=== PATIENT | female | born 1970 | race African-American/Black ===

== ENCOUNTER 2017-09-11 09:52 | Emergency (ER) | payer MEDICARE, MEDICAID ==
[2017-09-11] MEDS ORDERED: KETOROLAC TROMETHAMINE INJ/PF 30 MG/1 ML SDV IM ONE (10:21)
--- NOTE | 2017-09-11 10:28 | ER Document Report ---
ED General - General Chief Complaint: Arm Injury Stated Complaint: FALL ARM PAIN Time Seen by Provider: 09/11/17 10:11 Mode of Arrival: Ambulatory Information source: Patient Notes: The 47-year-old female presents to ED for complaint of pain to her left shoulder elbow forearm and hip and right shoulder after she fell down several steps last night. The [id number] states she was helping her when the patient slipped banging the rail and pollen sliding down at least 4 stairs. She is at a wheelchair this time. She is morbidly obese at 138 kg BMI of 55.8. TRAVEL OUTSIDE OF THE [place] IN LAST 30 DAYS: No - HPI Onset: This morning Onset/Duration: Sudden Quality of pain: Achy, Sharp Severity: Severe Pain Level: 5 Associated symptoms: Body/muscle aches, Other - Pain to left hip left arm left shoulder left elbow right shoulder Exacerbated by: Movement, Walking Relieved by: Denies Similar symptoms previously: Yes Recently seen / treated by doctor: No - Related Data Allergies/Adverse Reactions: nitroglycerin Allergy (Verified 09/11/17 10:01) sulfamethoxazole [From Bactrim] Allergy (Verified 09/11/17 10:01) trimethoprim [From Bactrim] Allergy (Verified 09/11/17 10:01) vancomycin Allergy (Verified 09/11/17 10:01) Past Medical History - General Information source: Patient - Social History Smoking Status: Never Smoker Cigarette use (# per day): No Chew tobacco use (# tins/day): No Smoking Education Provided: No Frequency of alcohol use: None Drug Abuse: None Lives with: Family Family History: Reviewed & Not Pertinent Patient has suicidal ideation: No Patient has homicidal ideation: No - Past Medical History Cardiac Medical History: Reports: Hx Congestive Heart Failure, Hx Coronary Artery Disease, Hx Hypercholesterolemia, Hx Hypertension Pulmonary Medical History: Reports: Hx Asthma, Hx COPD, Other - Pulmonary fibrosis EENT Medical History: Reports: None Neurological Medical History: Reports: None Endocrine Medical History: Reports: Other - Lupus Renal/ Medical History: Reports: None Malignancy Medical History: Reports: None GI Medical History: Reports: None Musculoskeltal Medical History: Reports Hx Arthritis, Reports Hx Musculoskeletal Deformity, Reports Hx Musculoskeletal Trauma Skin Medical History: Reports None Traumatic Medical History: Reports: None Infectious Medical History: Reports: None Past Surgical History: Reports: Hx Adenoidectomy, Hx Cardiac Catheterization, Hx Cholecystectomy, Hx Coronary Stent - 4, Hx Hysterectomy, Hx Orthopedic Surgery, Hx Tonsillectomy - Immunizations Immunizations up to date: Yes Hx Diphtheria, Pertussis, Tetanus Vaccination: Yes Review of Systems - Review of Systems Constitutional: No symptoms reported EENT: No symptoms reported Cardiovascular: No symptoms reported Respiratory: No symptoms reported Gastrointestinal: No symptoms reported Genitourinary: No symptoms reported Female Genitourinary: No symptoms reported Musculoskeletal: No symptoms reported Skin: No symptoms reported Hematologic/Lymphatic: No symptoms reported Neurological/Psychological: No symptoms reported -: Yes All other systems reviewed and negative Physical Exam - Vital signs Vitals: Temp Pulse Resp BP Pulse Ox 98.7 F 86 24 H 106/88 H 100 09/11/17 10:06 09/11/17 10:06 09/11/17 10:06 09/11/17 10:06 09/11/17 10:06 Interpretation: Normal - General General appearance: Appears well, Alert - HEENT Head: Normocephalic, Atraumatic Eyes: Normal Pupils: PERRL - Respiratory Respiratory status: No respiratory distress Chest status: Nontender Breath sounds: Normal Chest palpation: Normal - Cardiovascular Rhythm: Regular Heart sounds: Normal auscultation Murmur: No - Abdominal Inspection: Normal Distension: No distension Bowel sounds: Normal Tenderness: Nontender Organomegaly: No organomegaly - Back Back: Normal, Tender, Scars. No: Deformity/step-off, Vertebra tenderness, Scoliosis, Wounds - Extremities General upper extremity: Normal inspection, Nontender, Normal color, Normal ROM , Normal temperature General lower extremity: Normal inspection, Nontender, Normal color, Normal ROM , Normal temperature, Normal weight bearing. No: Laura's sign - Neurological Neuro grossly intact: Yes Cognition: Normal Orientation: AAOx4 [place] Coma Scale Eye Opening: Spontaneous Monster Coma Scale Verbal: Oriented [place] Coma Scale Motor: Obeys Commands [place] Coma Scale Total: 15 Speech: Normal Motor strength normal: LUE, RUE, LLE, RLE Sensory: Normal - Psychological Associated symptoms: Normal affect, Normal mood - Skin Skin Temperature: Warm Skin Moisture: Dry Skin Color: Normal Course - Re-evaluation Re-evalutation: 09/11/17 21:17 X-rays discussed with patient. Written reports of x-rays given the patient to follow-up with her primary doctor. Patient instructed to follow-up with orthopedics. Dr. Pham was consulted and he stated that the patient needed to follow-up in the office this was not an acute problem and did not need to be seen today. After performing a Medical Screening Examination, I estimate there is LOW risk for INTRACRANIAL HEMORRHAGE, UNSTABLE SPINE FRACTURE, CENTRAL CORD SYNDROME, CAUDA EQUINA, THORACIC AORTIC DISSECTION, PNEUMOTHORAX, PERFORATED BOWEL, RUPTURED ABDOMINAL AORTIC ANEURYSM, ACUTE TENDON RUPTURE, COMPARTMENT SYNDROME, or OPEN FRACTURE, thus I consider the discharge disposition reasonable. Also, there is no evidence or peritonitis, sepsis, or toxicity. I have reevaluated this patient multiple times and no significant life threatening changes are noted. The patient and I have discussed the diagnosis and risks, and we agree with discharging home to follow-up with their primary doctor with the understanding that symptoms and presentations can change. We also discussed returning to the Emergency Department immediately if new or worsening symptoms occur. We have discussed the symptoms which are most concerning (e.g., bloody stool, fever, changing or worsening pain, vomiting) that necessitate immediate return. - Vital Signs Vital signs: Temp Pulse Resp BP Pulse Ox 98.4 F 69 20 120/81 100 09/11/17 13:00 09/11/17 13:00 09/11/17 13:00 09/11/17 13:00 09/11/17 13:00 - Diagnostic Test Radiology reviewed: Image reviewed, Reports reviewed Discharge - Discharge Clinical Impression: Fall (on) (from) other stairs and steps, initial encounter, Contusion of right upper arm, initial encounter, Bilateral avascular necrosis humeral head Contusion of left hip Qualifiers: Encounter type: initial encounter Qualified Code(s): S70.02XA - Contusion of left hip, initial encounter Contusion of right shoulder Qualifiers: Encounter type: initial encounter Qualified Code(s): S40.011A - Contusion of right shoulder, initial encounter Contusion of right forearm Qualifiers: Encounter type: initial encounter Qualified Code(s): S50.11XA - Contusion of right forearm, initial encounter Condition: Stable Disposition: HOME, SELF-CARE Additional Instructions: Osteonecrosis, also known as aseptic necrosis, avascular necrosis (AVN), atraumatic necrosis, and ischemic necrosis, is a pathologic process that has been associated with numerous conditions and therapeutic interventions. In patients in whom there is direct damage to bone vasculature (eg, femoral neck fracture) or direct injury of bone or marrow elements (eg, radiation injury, dysbarism, or caisson disease), the cause is clearly identifiable. However, in many patients, the mechanisms by which this disorder develops are not fully understood. Compromise of the bone vasculature, leading to the of bone and marrow cells (bone marrow infarction), and ultimate mechanical failure appear to be common to most proposed etiologies. The process is most often progressive, resulting in joint destruction within a few months to two years in the majority of patients. A variety of traumatic and atraumatic factors contribute to the etiology of osteonecrosis . A definitive etiologic role has been established for some of these factors, based upon longitudinal cohort studies or meta-analyses, but not for the majority, which are considered associated risk factors . Use of glucocorticoids and excessive alcohol intake are associated with more than 80 percent of atraumatic cases . The pathogenesis of osteonecrosis is an area of controversy. Most experts believe that it is the result of the combined effects of genetic predisposition , metabolic factors, and local factors affecting blood supply, such as vascular damage, increased intraosseous pressure, and mechanical stresses . The early stages of the natural history are unclear, as these stages are largely asymptomatic and the patient does not present until later. It is generally agreed that there is an interruption of the blood circulation within the bone; subsequently, the adjacent area becomes hyperemic, resulting in demineralization , in trabecular thinning, and, later, in collapse. USE OF TYLENOL (ACETAMINOPHEN): Acetaminophen may be taken for pain relief or fever control. It's much safer than aspirin, offering a wider range of "safe" dosages. It is safe during . Some brand names are Tylenol, Panadol, Datril, Anacin 3, Tempra, and Liquiprin. Acetaminophen can be repeated every four hours. The following are maximum recommended dosages: WEIGHT Dose Drops Elixir Chewable( 80mg) (LBS.) drprs=droppers tsp=teaspoon 6 40 mg 0.4 ml (1/2) 6-11 80 mg 0.8 ml (full) tsp 1 tab 12-16 120 mg 1 1/2 drprs 3/4 tsp 1 1/2 tabs 17-23 160 mg 2 drprs 1 tsp 2 tabs 24-30 240 mg 3 drprs 1 1/2 tsp 3 tabs 30-35 320 mg 2 tsp 4 tabs 36-41 360 mg 2 1/4 tsp 4 1/2 tabs 42-47 400 mg 2 1/2 tsp 5 tabs 48-53 480 mg 3 tsp 6 tabs 54-59 520 mg 3 1/4 tsp 6 1/2 tabs 60-64 560 mg 3 1/2 tsp 7 tabs 65-70 600 mg 3 3/4 tsp 7 1/2 tabs 71-76 640 mg 4 tsp 8 tabs 77-82 720 mg 4 1/2 tsp 9 tabs 83-88 800 mg 5 tsp 10 tabs >89 pounds or adults 650 mg to 900 mg Acetaminophen can be repeated every four hours. Maximum dose not to exceed 4000 mg a day. These maximum recommended dosages are slightly higher than the dosages written on the product container, but these dosages are very safe and below the toxic dosage for acetaminophen. Anti-Inflammatory Medication You have received a prescription for an antiinflammatory agent. This is an excellent, safe drug for pain control. In addition, it has potent antiinflammatory effects which are beneficial, especially in the treatment of injuries, arthritis, or tendonitis. It's best to take this medicine with food. Persons with ulcer disease or allergy to aspirin should notify their physician of this before taking this drug. Take the medication exactly as prescribed. Don't take additional doses unless instructed to do so by your doctor. If you develop wheezing, shortness of breath, hives, faintness, stomach pain, vomiting, or dark black stools, return for re-evaluation at once. ICE PACKS: Apply ice packs frequently against the painful area. Many different schedules are recommended, such as "20 minutes on, 20 minutes off" or "one hour ice, two hours rest." If you need to work, you may need to go longer between ice treatments. You should plan to have the area ice packed AT LEAST one fourth of the time. The ice should be applied over the wrap, tape, or splint, or over a layer of cloth -- not directly against the skin. Some ice bags have a built-in cloth and can be put directly on the skin. WARM PACKS: After approximately two days, apply gentle heat (such as a heating pad or hot water bottle) for about 20 to 30 minutes about every two hours -- at least four times daily. Warmth and elevation will help you make a more rapid recovery , and will ease the pain considerably. Do not use HOT heat, and never apply heat for longer than 30 minutes. The continuous heat can invisibly damage skin and muscles -- even when no burn is seen on the surface. Damaged muscles can make you MORE sore. MUSCLE RELAXERS: Muscle relaxing medications are usually prescribed for acute muscle spasm or injury to the neck and back. They are often combined with antiinflammatory pain medication for increased relief. You may stop the muscle relaxer when the pain and stiffness have improved. Start the medication again if spasms recur. Muscle relaxers may cause drowsiness, especially with the first dose. Do not operate machinery or drive while under the effects of the medication. Most muscle relaxers last up to 24 hours. Do not combine the medication with alcohol. ORAL NARCOTIC MEDICATION: You have been given a prescription for pain control. This medication is a narcotic. It's best taken with food, as nausea can result if taken on an empty stomach. Don't operate machinery or drive within six hours of taking this medication. Do not combine this medicine with alcohol, or with any medication which can cause sedation (such as cold tablets or sleeping pills) unless you get permission from the physician. Narcotics tend to cause constipation. If possible, drink plenty of fluids and eat a diet high in fiber and fruits. FOLLOW-UP CARE: If you have been referred to a physician for follow-up care, call the physician s office for an appointment as you were instructed or within the next two days. If you experience worsening or a significant change in your symptoms, notify the physician immediately or return to the Emergency Department at any time for re-evaluation. Prescriptions: Hydrocodone/Acetaminophen [Eldora 5-325 mg Tablet] 1 tab PO Q6HP PRN #10 tablet PRN Reason: Cyclobenzaprine HCl [Flexeril 10 mg Tablet] 10 mg PO TIDP PRN #15 tab PRN Reason: Referrals: CATALINA REYES MD [ACTIVE STAFF] - Follow up as needed
--- NOTE | 2017-09-11 12:07 | RADIOLOGY REPORT (SQ) ---
EXAM DESCRIPTION: FOREARM LEFT COMPLETED DATE/TIME: 09/11/2017 11:49 am REASON FOR STUDY: fell down stairs COMPARISON: None. NUMBER OF VIEWS: Two views. TECHNIQUE: Two radiographic images acquired of the left forearm, including elbow and wrist in at [address] one projection. LIMITATIONS: None. FINDINGS: MINERALIZATION: Normal. BONES: No acute fracture. No worrisome bone lesions. SOFT TISSUES: No obvious swelling or foreign body. OTHER: No other significant finding. IMPRESSION: NEGATIVE STUDY OF THE LEFT FOREARM. NO RADIOGRAPHIC EVIDENCE OF ACUTE INJURY. TECHNICAL DOCUMENTATION: JOB ID: [id number] [employer]- All Rights Reserved Reading location - IP/workstation name: [email or web address]
--- NOTE | 2017-09-11 12:10 | RADIOLOGY REPORT (SQ) ---
EXAM DESCRIPTION: SHOULDER BILAT 2 OR MORE VIEWS COMPLETED DATE/TIME: 09/11/2017 11:49 am REASON FOR STUDY: fell down stairs COMPARISON: None. NUMBER OF VIEWS: Three views. TECHNIQUE: Internal rotation, external rotation, and Y view images acquired of the right and left sh oulder. LIMITATIONS: None. FINDINGS: RIGHT: MINERALIZATION: Normal. BONES: Avascular necrosis of the right humeral head is present with patchy subcortical sclerosis and mild articular surface depression and irregularity related to avascular necrosis. No definite acute posttraumatic fracture is present. Scapula, clavicle, right upper ribs are intact. JOINTS: No glenohumeral dislocation. No acromioclavicular joint widening VISUALIZED LUNGS AND RIBS: No pneumothorax. No rib fracture. SOFT TISSUES: No radiopaque foreign body. OTHER: No other significant finding. LEFT: MINERALIZATION: Normal. BONES: Avascular necrosis of the left humeral head is present with patchy subcortical sclerosis. No articular surface irregularity. No acute fracture. Left scapula, clavicle, left upper ribs are inta ct. JOINTS: No glenohumeral dislocation. No acromioclavicular joint widening. VISUALIZED LUNGS AND RIBS: No pneumothorax. No rib fracture. SOFT TISSUES: No radiopaque foreign body. Intra-articular loose bodies are present along the axillar y recess left shoulder joint OTHER: No other significant finding. IMPRESSION: Bilateral humeral head avascular necrosis. No acute fracture or malalignment. TECHNICAL DOCUMENTATION: JOB ID: [id number] [employer]- All Rights Reserved Reading location - IP/workstation name: [email or web address]
--- NOTE | 2017-09-11 12:11 | RADIOLOGY REPORT (SQ) ---
"EXAM DESCRIPTION: HIP LEFT AP/LATERAL COMPLETED DATE/TIME: 09/11/2017 11:49 am REASON FOR STUDY: fell down stairs COMPARISON: None. NUMBER OF VIEWS: Two views. TECHNIQUE: AP pelvis and additional frog-leg view of the left hip. LIMITATIONS: Large patient FINDINGS: MINERALIZATION: Normal. LEFT HIP: No fracture or dislocation. No worrisome bone lesions. Mild left hip joint space narrowin g and acetabular rim bony spurring. RIGHT HIP: No fracture or dislocation. No worrisome bone lesions. Mild right hip joint space narrow ing without significant acetabular rim bony spurring. PUBIS AND ISCHIUM: No fracture. PELVIS: No fracture. SACRUM: No fracture or dislocation. No worrisome bone lesions. SOFT TISSUES: No findings. OTHER: No other significant finding. IMPRESSION: No acute fracture TECHNICAL DOCUMENTATION: JOB ID: [id number] [employer] | [employer]- All Rights Reserved Reading location - IP/workstation name: [email or web address]"
[2017-09-11 13:31] VITALS: BP 120/81
== END 2017-09-11 13:00 | disposition home or self-care (01) ==
LOC: ER 09:52
DX: S40.011A Contusion of right shoulder, initial encounter (principal); S40.021A Contusion of right upper arm, initial encounter; S70.02XA Contusion of left hip, initial encounter; S50.11XA Contusion of right forearm, initial encounter; M87.9 Osteonecrosis, unspecified; M25.522 Pain in left elbow; M79.602 Pain in left arm; W10.9XXA Fall (on) (from) unspecified stairs and steps, initial encounter; I25.10 Atherosclerotic heart disease of native coronary artery without angina pectoris; I10 Essential (primary) hypertension; J44.9 Chronic obstructive pulmonary disease, unspecified; E66.01 Morbid (severe) obesity due to excess calories; Z68.43 Body mass index [BMI] 50.0-59.9, adult; Z88.8 Allergy status to other drugs, medicaments and biological substances; Z88.1 Allergy status to other antibiotic agents; Z88.5 Allergy status to narcotic agent
CPT/HCPCS: 99283; 96372; 73090; 73502; 73030; J1885

== ENCOUNTER → 2017-09-29 | Outpatient (CLI) | payer MEDICARE ==
--- NOTE | 2017-09-29 16:57 | RADIOLOGY REPORT (SQ) ---
EXAM DESCRIPTION: MRI RT UPPER JOINT WITHOUT COMPLETED DATE/TIME: 09/29/2017 10:56 am REASON FOR STUDY: RT HUMERUS avascular necrosis M87.022 IDIOPATHIC ASEPTIC NECROSIS OF LEFT HUMERUS M87.021 IDIOPATHIC ASEPTIC NECROSIS OF RIGHT HUMERUS COMPARISON: Plain radiograph TECHNIQUE: Right shoulder images acquired and stored on PACS. Multiplanar imaging to include fat sen sitive sequences such as T1, water sensitive sequences such as FST2/STIR, cartilage sensitive sequenc es such as FSPD/gradient-echo sequences. LIMITATIONS: Morbid obesity FINDINGS: BONE MARROW AND CORTEX: Generalize flattening of the humeral head with signal alteration i ndicating avascular necrosis. Some fragmentation of the superior cortex. JOINT OR BURSAL EFFUSION: Intra and extra articular fluid. There is a prominent subdeltoid effusion. GLENO-HUMERAL ARTICULATION: Mild degenerative changes with medial humeral osteophyte. ACROMION AND AC JOINT: Type 1 acromion. AC joint arthropathy. ROTATOR CUFF AND INTERVAL: Marked tendinopathy. No definitive tear, although sub optimal visualizati on. No rotator interval tear. No rotator interval thickening to suggest adhesive capsulitis. LABRUM AND BICEPS LABRAL COMPLEX: Intact. No labral tear. Intra-articular long-head biceps tendon n ormal. Distal biceps in normal location in bicipital groove. REMAINDER OF LABRUM AND IGHL : No gross tear or paralabral cyst formation. Labral evaluation is less than optimal without joint distention. No thickening of IGHL to suggest adhesive capsulitis. PERIARTICULAR AND ADJACENT SOFT TISSUES: No masses or abnormal nodes. OTHER: No other significant finding. IMPRESSION: Suboptimal study related to morbid obesity. Avascular necrosis of the humeral head with fragmentation. Tendinopathy of the supraspinatus but no definitive full-thickness tear. Intra and extra-articular fluid. TECHNICAL DOCUMENTATION: JOB ID: [id number] [employer]- All Rights Reserved Reading location - IP/workstation name: [email or web address]
--- NOTE | 2017-09-29 17:03 | RADIOLOGY REPORT (SQ) ---
EXAM DESCRIPTION: MRI LT UPPER JOINT WITHOUT COMPLETED DATE/TIME: 09/29/2017 10:56 am REASON FOR STUDY: RT HUMERUS avascular necrosis, LT HUMERUS avascular necrosis M87.022 IDIOPATHIC ASEPTIC NECROSIS OF LEFT HUMERUS M87.021 IDIOPATHIC ASEPTIC NECROSIS OF RIGHT HUMERUS COMPARISON: Plain radiograph TECHNIQUE: Left shoulder images acquired and stored on PACS. Multiplanar imaging to include fat sens itive sequences such as T1, water sensitive sequences such as FST2/STIR, cartilage sensitive sequence s such as FSPD/gradient-echo sequences. LIMITATIONS: Morbid obesity FINDINGS: BONE MARROW AND CORTEX: There is evidence for avascular necrosis however less prominent ch anges than in the right shoulder. JOINT OR BURSAL EFFUSION: Intra and extra-articular fluid. GLENO-HUMERAL ARTICULATION: Marked glenohumeral osteoarthritis with medial humeral osteophytes. Gene ralize cartilaginous loss. Superior migration of the humeral head. ACROMION AND AC JOINT: Type 2 acromion Mild AC joint arthropathy. ROTATOR CUFF AND INTERVAL: Marked atrophy of the supraspinatus. Prominent articular surface partial tear. Calcification within the distal supraspinatus. No definitive full-thickness tear. No rotator interval tear. No rotator interval thickening to suggest adhesive capsulitis. LABRUM AND BICEPS LABRAL COMPLEX: Intact. No labral tear. Intra-articular long-head biceps tendon n ormal. Distal biceps in normal location in bicipital groove. REMAINDER OF LABRUM AND IGHL : No gross tear or paralabral cyst formation. Labral evaluation is less than optimal without joint distention. No thickening of IGHL to suggest adhesive capsulitis. PERIARTICULAR AND ADJACENT SOFT TISSUES: No masses or abnormal nodes. OTHER: No other significant finding. IMPRESSION: Avascular necrosis of the humeral head but without fragmentations seen on the right. Th ere is however advanced glenohumeral osteoarthritis. Large articular surface partial tear of the supraspinatus with marked muscle atrophy. Calcification the distal tendon. No definite full-thickness tear. Large intra-articular effusion with a smaller extra-articular fluid collection. TECHNICAL DOCUMENTATION: JOB ID: [id number] [employer]- All Rights Reserved Reading location - IP/workstation name: [email or web address]
== END ==
LOC: RAD 09:20
PROVIDERS: ATTEND Orthopaedic Surgery
DX: M87.021 Idiopathic aseptic necrosis of right humerus (principal); M87.022 Idiopathic aseptic necrosis of left humerus